=== PATIENT | female | born 1995 | race Caucasian/White ===

== ENCOUNTER 2016-05-23 09:46 | Inpatient (IN) | payer OTHER ==
[~2016-05-23] VITALS: Ht 160 cm; Wt 129.3 kg
[~2016-05-23 09:46] MED LIST: BUPIVACAINE 0.5% PF 10ML EPIDURAL ONE
[2016-05-23] MEDS ORDERED: LIDOCAINE/EPI 2% MPF 20 ML EPIDURAL ONE (10:10)
[2016-05-23] MEDS ORDERED: PHENYLEPHRINE 10 MG/ML VIAL IV ONE (10:10)
[2016-05-23] MEDS ORDERED: ALU/MAG/SIM 30 ML UDC PO PRN (10:55)
[2016-05-23] MEDS ORDERED: OXYTOCIN 15 UNITS/250 ML NS 250 ML IV SCH ×3 (10:55→23:55)
[2016-05-23] MEDS ORDERED: METOCLOPRAMIDE 10 MG/2 ML VIAL IV PUSH PRN (10:55)
[2016-05-23] MEDS ORDERED: ACETAMINOPHEN 325 MG TAB PO PRN (10:55)
[2016-05-23] MEDS ORDERED: PROMETHAZINE 25 MG/ML VIAL IV PRN ×2 (10:55→23:05)
[2016-05-23] MEDS ORDERED: LIDOCAINE 1% BUFFERED 1 ML SYR INTRADERM PRN (10:55)
[2016-05-23] MEDS ORDERED: FAMOTIDINE 20 MG TAB PO PRN (10:55)
[2016-05-23] MEDS ORDERED: ONDANSETRON 4 MG VIAL IV PRN ×4 (10:55→23:55)
[2016-05-23] MEDS ORDERED: CEFAZOLIN (LD/OB) 100 ML IV PRN (10:55)
[2016-05-23] MEDS ORDERED: FAMOTIDINE 20 MG INJ IV PRN (10:55)
[2016-05-23] MEDS ORDERED: TERBUTALINE 1 MG/ML VIAL SUBQ PRN (10:55)
[2016-05-23] MEDS ORDERED: LIDOCAINE 1% 30 ML PF INFILTRATE ONE (10:55)
[2016-05-23] MEDS: LACT RINGERS 1,000 ML IV SCH ×2 (11:57→23:02)
[2016-05-23] MEDS ORDERED: BUTORPHANOL 2 MG/ML VIAL IV PRN (13:35)
[2016-05-23 15:31] VITALS: Ht 160 cm; Wt 129.3 kg
[2016-05-23] MEDS ORDERED: ROPIV/FENT 0.2%-2MCG/ML 100 ML EPIDURAL ONE (15:56)
[2016-05-23] MEDS ORDERED: FENTANYL 100 MCG/2 ML AMP ONE (15:56)
[2016-05-23] MEDS ORDERED: ROPIV/FENT 0.2%-2MCG/ML 100 ML EPIDURAL SCH (16:25)
[2016-05-23] MEDS ORDERED: LACT RINGERS 500 ML IV PRN (16:25)
[2016-05-23] MEDS ORDERED: FENTANYL 100 MCG/2 ML AMP EPIDURAL ONE (16:25)
[2016-05-23] MEDS ORDERED: SODIUM CHLORIDE 0.9% 500 ML IV PRN (16:25)
[2016-05-23] MEDS ORDERED: LACT RINGERS 500 ML IV ONE (16:25)
[2016-05-23] MEDS ORDERED: **ONLY ANESTEHSIA MAY ORDER OPIATES WHILE ON EPIDURAL XX SCH (20:00)
[2016-05-23] MEDS ORDERED: CEFAZOLIN 3,000 MG in SODIUM CHLORIDE 0.9% 100 ML IV ONE (22:55)
[2016-05-23] MEDS ORDERED: BUTORPHANOL 1 MG/ML VIAL IV PRN (23:05)
[2016-05-23] MEDS ORDERED: SALINE FLUSH 10 ML FLUSH PRN (23:05)
[2016-05-23] MEDS ORDERED: OXYCODONE 5 MG TAB PO PRN (23:05)
[2016-05-23] MEDS ORDERED: MORPHINE 4 MG/ML SYR IV PRN ×2 (23:05)
[2016-05-23] MEDS ORDERED: MORPHINE 2 MG/ML SYR IV PRN ×2 (23:05)
[2016-05-23] MEDS ORDERED: DILAUDID 1 MG/ML AMP IV PRN (23:05)
[2016-05-23] MEDS ORDERED: NALOXONE 0.4 MG/ML AMP IV PRN (23:05)
[2016-05-23] MEDS ORDERED: METOCLOPRAMIDE 10 MG/2 ML VIAL IV PUSH ONE (23:05)
[2016-05-23] MEDS ORDERED: DIPHENHYDRAMINE 50 MG/ML VIAL IV PRN (23:05)
[2016-05-23] MEDS ORDERED: FAMOTIDINE 20 MG INJ IV ONE (23:05)
[2016-05-23] MEDS ORDERED: MEPERIDINE 25 MG/ML IV PRN (23:05)
[2016-05-23] MEDS ORDERED: LACT RINGERS 1,000 ML IV SCH (23:05)
[2016-05-23] MEDS ORDERED: BISACODYL 10 MG SUPP RECTAL PRN (23:55)
[2016-05-23] MEDS ORDERED: MEASLES,MUMPS,RUBELLA VAC SUBQ.VACC ONE (23:55)
[2016-05-23] MEDS ORDERED: MAG HYDROX 30 ML UDC PO PRN (23:55)
[2016-05-23] MEDS ORDERED: TDaP 0.5 ML VIAL IM.VACC ONE (23:55)
[2016-05-24] VITALS (18 sets, daily range): BP systolic 104–142; RESP 16–20; TEMP 98.3–99.1
[2016-05-24] MEDS: KETOROLAC 30 MG/ML VIAL IV SCH ×4 (01:45→17:28)
[2016-05-24] MEDS ORDERED: SODIUM CHLORIDE 0.9% FLUSH BAG 500 ML IV SCH (06:00)
[2016-05-24] MEDS: SALINE FLUSH 10 ML FLUSH SCH ×2 (07:31→20:00)
[2016-05-24] MEDS: CEFAZOLIN 2,000 MG in SODIUM CHLORIDE 0.9% 100 ML IV SCH ×2 (08:15→15:59)
[2016-05-24] MEDS: DOCUSATE SOD 100 MG CAP PO SCH (09:26)
[2016-05-24] MEDS: LACT RINGERS 1,000 ML IV SCH ×2 (11:59→22:05)
[2016-05-24] MEDS: Ibuprofen 600 MG TAB PO SCH (23:37)
[2016-05-25] MEDS: Ibuprofen 600 MG TAB PO SCH ×3 (05:18→17:50)
[2016-05-25] MEDS: OXYCODONE/APAP 5/325 TAB PO PRN ×3 (05:19→21:50)
[2016-05-25 05:25] VITALS: BP_SYST 117; RESP 16; TEMP 98.1
[2016-05-25 09:07] VITALS: BP_SYST 131; RESP 20; TEMP 98.2
[2016-05-25] MEDS: DOCUSATE SOD 100 MG CAP PO SCH (09:35)
[2016-05-25 17:46] VITALS: BP_SYST 130; RESP 18; TEMP 98.1
[2016-05-25] MEDS: SALINE FLUSH 10 ML FLUSH SCH (20:00)
[2016-05-26 05:15] VITALS: BP_SYST 131; RESP 20; TEMP 98
[2016-05-26] MEDS: Ibuprofen 600 MG TAB PO SCH ×3 (05:43→11:54)
[2016-05-26] MEDS: DOCUSATE SOD 100 MG CAP PO SCH (08:50)
[2016-05-26 11:09] VITALS: BP_SYST 119; RESP 20; TEMP 98
[2016-05-26] MEDS ORDERED: MEASLES,MUMPS,RUBELLA VAC SUBQ.VACC ONE (12:54)
== END 2016-05-26 13:50 | disposition home or self-care (01) | DRG 766 ==
LOC: LDOP 09:46 → LD 13:22 → OB 05-24 03:10
PROVIDERS: ADMIT Obstetrics & Gynecology; ATTEND Obstetrics & Gynecology
PROC: 10D00Z1 Extraction of Products of Conception, Low, Open Approach (ICD-10-PCS; principal; 2016-05-23)
DX: O62.1 Secondary uterine inertia (principal); Z37.0 Single live birth; Z3A.38 38 weeks gestation of pregnancy
CPT/HCPCS: 36415; 82803; 84112; 85025; 96372